=== PATIENT | female | born 1980 | race Two or more races ===

== ENCOUNTER 2018-07-21 15:33 | Emergency (ER) | payer MEDICAID ==
[~2018-07-21] VITALS: Ht 165.1 cm; Wt 63.5 kg
--- NOTE | 2018-07-21 15:33 | NUR ---
PT BIBRA FROM C/O BACK PAIN, TOOK TRAMADOL, FEELS LIKE SHE "TOOK TOO MUCH", PT AAOX4, RESPIRATIONS EVEN AND UNLABORED, NO SOB, NAD NOTED, DENIES SI/HI, VSS, PT ON MONITOR, PENDING ER PROVIDER ADAM
[2018-07-21] MEDS ORDERED: LORAZEPAM INJ 2 MG/ML VIAL ONE (16:04)
[2018-07-21] MEDS ORDERED: LORAZEPAM 1 MG TABLET PO ONE (16:30)
[2018-07-21] MEDS ORDERED: LORAZEPAM INJ 2 MG/ML VIAL IV ONE (16:30)
--- NOTE | 2018-07-21 17:39 | NUR ---
Patient is resting comfortably in bed with eyes closed. Easily aroused. VSS
[2018-07-21 18:03] LABS: CALCIUM, SERUM 8.4 mg/dL (8.5-10.1); CREATININE 0.6 mg/dL (0.6-1.3); MAGNESIUM 1.8 mg/dL (1.8-2.4); POTASSIUM 4.1 mmol/L (3.5-5.1)
--- NOTE | 2018-07-21 19:27 | NUR ---
IV removed. Catheter intact and site benign. Pressure and 4x4 applied to site. No bleeding noted. Patient discharged to home in stable condition. Written and verbal after care instructions given. Patient verbalizes understanding of instruction. VSS. PT AMBULATED TO THE LOBBY WITH A STEADY GAIT. PT CALLED HER TO COME PICK HER UP. PT WAS INSTRUCTED NOT TO DRIVE.
[2018-07-21 19:28] VITALS: BP 128/76
== END 2018-07-21 19:28 | disposition home or self-care (01) ==
LOC: ER 15:35
DX: T40.4X1A Poisoning by other synthetic narcotics, accidental (unintentional), initial encounter (principal); R00.0 Tachycardia, unspecified; Y92.89 Other specified places as the place of occurrence of the external cause
CPT/HCPCS: 36415; 80048-TC; 83735-TC; J2060